=== PATIENT | female | born 1995 | race American Indian/Alaskan Native ===

== ENCOUNTER 2021-07-03 14:28 | Emergency (ER) | payer BC, OTHER ==
[2021-07-03 14:37] VITALS: BP 124/84
[2021-07-03] MEDS ORDERED: ONDANSETRON 4 MG ODT TAB PO ONE (15:17)
[2021-07-03 16:04] LABS: Bilirubin,Urine NEG (Negative); Blood,Urine MOD (Negative); Color,Urine Yellow (Yellow); Mucus,Urine 3+ /HPF; Urobilinogen,Urine < 2.0 mg/dL (<2.0)
[2021-07-03 16:05] LABS: HCG Qualitative,Urine Negative (Negative); Protein,Urine >500 mg/dL (Negative)
[2021-07-03] MEDS ORDERED: KETOROLAC 10 MG TAB PO ONE (16:42)
[2021-07-03] MEDS ORDERED: DICYCLOMINE 20 MG TAB PO ONE (16:43)
--- NOTE | 2021-07-03 16:58 | Emergency Department Report ---
ED N/V/D HPI - General Chief complaint: Nausea/Vomiting/Diarrhea Stated complaint: NAUSEA/VOMITING Time Seen by Provider: 07/03/21 15:12 Source: EMS Mode of arrival: Stretcher Limitations: No Limitations - History of Present Illness Initial comments: 25-year-old black female with no past medical history presents to the emergency department for evaluation of nausea vomiting that started around 7 AM this morning. She denies abdominal pain but states that she has had persistent nausea and vomiting and has not been able to keep anything down. She denies sick contacts, fever, diarrhea, back pain, dysuria, and vaginal discharge. She states that she did have some spotting on Monday and again this morning that has resolved. She said her last normal menstrual period was May 31, 2021. MD complaint: nausea, vomiting -: Sudden, days(s) Description of Vomiting: watery Associated Abdominal Pain: Yes Associated Symptoms: nausea/vomiting. denies: myalgias, chest pain, cough, diaphoresis, fever/chills, headaches, loss of appetite, malaise, rash, dysuria, shortness of breath, syncope, weakness - Related Data Previous Rx's Medication Instructions Recorded Last Taken Type Dicyclomine [Bentyl] 20 mg PO QID PRN #21 tablet 07/03/21 Unknown Rx Ondansetron [Zofran Odt] 4 mg PO Q8HR PRN #12 tab.rapdis 07/03/21 Unknown Rx Allergies Allergy/AdvReac Type Severity Reaction Status Date / Time No Known Allergies Allergy Unverified 10/17/19 15:40 ED Review of Systems ROS: Stated complaint: NAUSEA/VOMITING Other details as noted in HPI Comment: All other systems reviewed and negative Constitutional: denies: chills, fever Eyes: denies: vision change Respiratory: denies: cough, shortness of breath, SOB with exertion, SOB at rest Cardiovascular: denies: chest pain, palpitations, dyspnea on exertion Gastrointestinal: nausea, vomiting. denies: abdominal pain, diarrhea, hematemesis, melena, hematochezia Genitourinary: denies: urgency, dysuria, frequency, hematuria, discharge, abnormal menses, dyspareunia Skin: denies: rash, lesions Neurological: denies: headache, weakness, numbness, paresthesias, confusion, abnormal gait Psychiatric: denies: anxiety, depression ED Past Medical Hx - Past Medical History Previous Medical History?: No - Surgical History Past Surgical History?: No - Social History Smoking Status: Former Smoker Substance Use Type: Marijuana - Medications Home Medications: Home Medications Medication Instructions Recorded Confirmed Last Taken Type Dicyclomine [Bentyl] 20 mg PO QID PRN #21 tablet 07/03/21 Unknown Rx Ondansetron [Zofran Odt] 4 mg PO Q8HR PRN #12 tab.rapdis 07/03/21 Unknown Rx ED Physical Exam - General Limitations: No Limitations General appearance: alert, in no apparent distress - Head Head exam: Present: atraumatic, normocephalic - Eye Eye exam: Present: normal appearance. Absent: conjunctival injection - Neck Neck exam: Present: normal inspection. Absent: tenderness - Respiratory Respiratory exam: Present: normal lung sounds bilaterally. Absent: respiratory distress, wheezes, rales, rhonchi, stridor, chest wall tenderness - Cardiovascular Cardiovascular Exam: Present: regular rate, normal heart sounds - GI/Abdominal GI/Abdominal exam: Present: soft, normal bowel sounds. Absent: distended, tenderness, guarding, rebound, rigid - Extremities Exam Extremities exam: Present: normal inspection, normal capillary refill. Absent: pedal edema, joint swelling, calf tenderness - Back Exam Back exam: Present: normal inspection. Absent: tenderness, CVA tenderness (R), CVA tenderness (L), vertebral tenderness - Neurological Exam Neurological exam: Present: alert, oriented X3, normal gait, reflexes normal. Absent: motor sensory deficit - Psychiatric Psychiatric exam: Present: normal affect, normal mood - Skin Skin exam: Present: warm, dry, intact, normal color ED Course Vital Signs 07/03/21 14:32 Temperature 98.4 F Pulse Rate 62 Respiratory 18 Rate Blood Pressure 124/84 Blood Pressure 124/84 [Right] O2 Sat by Pulse 99 Oximetry - Reevaluation(s) Reevaluation #1: 07/03/21 16:58 Nausea resolved and patient able to drinking keep down a cup of water. ED Medical Decision Making - Medical Decision Making 25-year-old black female with no past medical history presents to the emergency department for evaluation of nausea vomiting that started around 7 AM this morning. She denies abdominal pain but states that she has had persistent nausea and vomiting and has not been able to keep anything down. She denies sick contacts, fever, diarrhea, back pain, dysuria, and vaginal discharge. She states that she did have some spotting on Monday and again this morning that has resolved. She said her last normal menstrual period was May 31, 2021. Nausea vomiting improved after Zofran, and urine negative for UTI and . Patient will be discharged home with treatment for viral gastroenteritis with Zofran that she can use as needed for nausea along with Bentyl for abdominal cramping and pain. She is advised to drink plenty of noncaffeinated fluids, take medications as prescribed, and follow-up with primary care provider if no improvement or worsening symptoms. Understanding of and agreement with plan of care. Critical care attestation.: If time is entered above; I have spent that time in minutes in the direct care of this critically ill patient, excluding procedure time. ED Disposition Clinical Impression: Viral gastroenteritis Disposition: HOME / SELF CARE / HOMELESS Is pt being admited?: No Does the pt Need Aspirin: No Condition: Stable Instructions: Viral Gastroenteritis, Adult, [id number] Additional Instructions: Take medications as prescribed. Drink plenty of noncaffeinated fluids. Follow- up with primary care provider if no improvement or worsening symptoms. Return to the emergency department as needed. Prescriptions: Dicyclomine [Bentyl] 20 mg PO QID PRN #21 tablet PRN Reason: Pain, Moderate (4-6) Ondansetron [Zofran Odt] 4 mg PO Q8HR PRN #12 tab.rapdis PRN Reason: Nausea And Vomiting Referrals: ROYAL DAVIS MD [Referring] - 3-5 Days Time of Disposition: 17:00
== END 2021-07-03 18:01 | disposition home or self-care (01) ==
LOC: ED 14:28
DX: A08.4 Viral intestinal infection, unspecified (principal); F12.90 Cannabis use, unspecified, uncomplicated; Z87.891 Personal history of nicotine dependence; Z79.899 Other long term (current) drug therapy
CPT/HCPCS: 81001; 81025; 99283; J3490; Q0162